=== PATIENT | male | born 1990 | race Caucasian/White ===

== ENCOUNTER 2023-08-24 10:02 | Emergency (ER) | payer MEDICAID ==
[~2023-08-24] VITALS: Ht 182.9 cm; Wt 78.6 kg
[2023-08-24 11:04] LABS: BASOPHILS % (AUTO) 0.4 % (0-1); EOSINOPHILS # (AUTO) 0.4 X10'3 (0-0.9); HEMATOCRIT 43.1 % (42.0-52.0); HEMOGLOBIN 14.9 g/dl (14.0-17.9); LYMPHOCYTES # (AUTO) 1.3 X10'3 (1.1-4.8); LYMPHOCYTES % (AUTO) 14.5 % (21-51); MEAN CORPUSCULAR HGB CONC 34.5 g/dL (33.0-36.5); MEAN CORPUSCULAR VOLUME 89.9 FL (78-98); MEAN PLATELET VOLUME 9.2 FL (7.4-10.4); MONOCYTES # (AUTO) 0.8 X10'3 (0-0.9); MONOCYTES % (AUTO) 8.3 % (2-12); NEUTROPHILS # (AUTO) 6.6 X10'3 (1.8-7.7); NEUTROPHILS % (AUTO) 72.8 % (42-75); PLATELET COUNT 123 X10'3 (140-440); RED CELL DISTRIBUTION WIDTH 13.4 % (11.5-14.5); WHITE BLOOD COUNT 9.1 X10'3 (4.5-11.0)
[2023-08-24 11:16] LABS: ALBUMIN 3.6 G/DL (3.4-5.0); ANION GAP 10 (8-16); BLOOD UREA NITROGEN 2 MG/DL (7-18); BUN/CREATININE RATIO 2.2 (10.0-20.0); CALCIUM 8.4 MG/DL (8.5-10.1); CHLORIDE 107 MMOL/L (99-107); CREATININE 0.93 MG/DL (0.60-1.10); ETHANOL < 10 MG/DL (<10); GLUCOSE 103 MG/DL (70-104); POTASSIUM 4.2 MMOL/L (3.5-5.1); SALICYLATE 2.4 MG/DL (4.0-20.0); SODIUM 144 MMOL/L (135-145); TOTAL CARBON DIOXIDE 27.1 MMOL/L (24-32); eCRCL 124 ML/MIN; eGFR > 90 ML/MIN
[2023-08-24 11:21] LABS: ACETAMINOPHEN < 2.0 UG/ML (10-30)
[2023-08-24 11:27] LABS: BILIRUBIN,URINE NEGATIVE (Neg); CLARITY,URINE CLEAR (Clear); COLOR,URINE YELLOW (Yellow); GLUCOSE, URINE NEGATIVE (Neg); KETONES,URINE NEGATIVE (Neg); LEUKOCYTE ESTERASE ,URINE NEGATIVE (Neg); NITRITES, URINE NEGATIVE (Neg); OCCULT BLOOD,URINE NEGATIVE (Neg); PH,URINE 7.5 (4.8-8.0); PROTEIN,URINE NEGATIVE (Neg); UROBILINOGEN,URINE 0.2 E.U/dL (0.2-1.0)
[2023-08-24 11:30] LABS: UA COLLECTION TYPE CLN CATCH MIDSTREAM
[2023-08-24 11:41] LABS: URINE AMPHETAMINE SCREEN NEGATIVE (Neg); URINE BARBITUATE SCREEN NEGATIVE (Neg); URINE BENZODIAZEPINES SCREEN NEGATIVE (Neg); URINE CANNABINOID SCREEN NEGATIVE (Neg); URINE COCAINE SCREEN NEGATIVE (Neg); URINE METHADONE SCREEN NEGATIVE (Neg); URINE PHENCYCLIDINE SCREEN NEGATIVE (Neg)
[2023-08-24] MEDS ORDERED: DIVA500T2 PO ×2 (12:24)
[2023-08-24] MEDS ORDERED: RISP120S SQ (12:25)
[2023-08-24] MEDS ORDERED: HYDR25CA PO (12:27)
[2023-08-24] MEDS: hydrOXYzine 25 MG tablet PO PRN (17:27)
[2023-08-24] MEDS: nicotine 14mg patch - 24hr TD ONE (18:55)
[2023-08-24] MEDS: divalproex sodium 500mg tablet.DR PO SCH (21:29)
[2023-08-25] MEDS: divalproex sodium 500mg tablet.DR PO SCH (08:34)
[2023-08-25] MEDS ORDERED: HYDR-3686 PO (10:15)
[2023-08-25 12:53] VITALS: BP 93/48; PULSE 66; RESP 16; TEMP 97.7; O2SAT 96
[2023-09-17] MEDS ORDERED: RISPERIDONE SQ SCH (13:10)
== END 2023-08-25 12:50 | disposition home or self-care (01) ==
LOC: ER 10:03
DX: R45.851 Suicidal ideations (principal); Z20.822 Contact with and (suspected) exposure to COVID-19; F32.A Depression, unspecified
CPT/HCPCS: 36415; 80048; 80305; 80320; 80329; 81003; 85025; 87811; 99285; Q0177